=== PATIENT | male | born 1940 | race Caucasian/White ===

== ENCOUNTER 2023-12-15 14:07 | Inpatient (IN) ==
--- NOTE | 2023-12-15 14:22 | Emergency Department Note ---
Impression & Plan Acute respiratory failure with hypoxia and hypercapnia, COPD exacerbation, Elevated troponin ED Provider Note NAME: AMINATA CORNEJO AGE: 83 SEX: M ARRIVES VIA: Ambulance INFORMANT: Patient ED PROVIDER(S): Jayce Bernard MD CHIEF COMPLAINT: Shortness of breath PLAN: Disposition: Admit MEDICAL DECISION MAKING: The patient is a pleasant 83-year-old gentleman with a past medical history of CLL, COPD with as needed home oxygen who presents to the emergency department via EMS for acute onset severe shortness of breath reports his home oxygen did not help nor his inhalers. EMS found the patient to be cyanotic and labored with his breathing saturating 85% on room air. This did improve somewhat with supplemental oxygen. Patient was noted to be hypertensive in the 200s/100s and heart rate in the 100s and tachypneic in the 30s. Patient reports feeling in his normal state of health yesterday that any recent fevers, chills, cough congestion. Denies any acute onset chest pain with his associated symptoms today. He reports he was preparing to go to a . Patient denies taking any diuretics. On my evaluation the patient is ill-appearing in moderate respiratory distress with labored breathing and diffuse wheezes of bilateral lung garnica with prolonged expiratory phase and accessory muscle use. He appears clinically dry. Patient is afebrile with heart rate in the 110s and blood pressure 230s/120s improving to the low 100s and 180s/100s following treatment with DuoNeb, steroids, BiPAP. Work of breathing also significantly improved. EKG demonstrates sinus tachycardia, 110 bpm with LVH with QRS widening which is similar to May 03, 2023 with more pronounced reposition abnormalities. Chest x-ray demonstrates vascular congestion with left greater than right mixed interstitial and alveolar airspace opacities suspicious for pneumonia versus a symmetric pulmonary edema. WBC 21.5 nonspecific and similar to prior in setting of history of CLL. H/H12.9/42.4, similar to prior values. VBG demonstrates respiratory acidosis with pH of 7.2 pCO2 of 73 consistent with patient's COPD and presentation. Chemistry without metabolic acidosis. Creatinine 1.5 similar to prior values. Electrolytes LFTs unremarkable. High-sensitivity troponin 88, nonspecific and in the setting of the patient's acute respiratory failure and history of CHF. BNP is 842, nonspecific but in the setting of prior echo demonstrating mild systolic dysfunction in the setting of the patient acute respiratory failure, tachypnea and tachycardia. Suspect symptoms likely related to multiple factors including component of COPD exacerbation which may have been provoked by hypertensive urgency/emergency in the setting of history of mild systolic dysfunction. Of note, Nitropaste ordered initially to help reduce afterload as the patient had been hypertensive but his blood pressure did improve to the 140s/70s and so this was deferred. Case was d/w YOVANA Mota hospitalist who will evaluate the patient for admission. Procalcitonin 2.5. Delta 3 hour HS troponin 12,500. Admitting team aware. Patient feeling improved. Further management per admitting team. Triage Nursing notes reviewed and agree them. Prior/external medical records reviewed: Of note, review of patient's echocardiogram from 05/26/2023 demonstrates mildly reduced left ventricular systolic function with EF of 45-50%. Grade 1 diastolic dysfunction is noted. Right ventricle is normal in size and function. There is mild to moderate mitral regurgitation. Right ventricular systolic pressure is normal. Vital Signs: reviewed Differential diagnosis: Reactive airway disease, pneumonia, pneumothorax, COPD, CHF, infections, cardiac ischemia, pulmonary embolism, musculoskeletal, gastrointestinal, as well as other pathologies. ER treatment provided: See below. Diagnostics interpreted by me: ECG: Sinus tachycardia, 110 bpm, LVH with QRS widening which is similar to EKG from May 03, 2023 though with more pronounced repolarization abnormalities., QTc 454, QRS 130. Cardiac Monitoring: An order for continuous cardiac monitoring was placed and demonstrated Sinus tachycardia, 110 bpm Laboratory studies: See below Imaging studies: See below Consultation(s): Case was d/w YOVANA Mota hospitalist who will evaluate the patient for admission. HPI: The patient is a pleasant 83-year-old gentleman with a past medical history of CLL, COPD with as needed home oxygen who presents to the emergency department via EMS for acute onset severe shortness of breath reports his home oxygen did not help nor his inhalers. EMS found the patient to be cyanotic and labored with his breathing saturating 85% on room air. This did improve somewhat with supplemental oxygen. Patient was noted to be hypertensive in the 200s/100s and heart rate in the 100s and tachypneic in the 30s. Patient reports feeling in his normal state of health yesterday that any recent fevers, chills, cough congestion. Denies any acute onset chest pain with his associated symptoms today. He reports he was preparing to go to a . ROS: See above HPI for pertinent positives & negatives. A total of 10 systems reviewed and were otherwise negative. VITALS:See Below PHYSICAL EXAMINATION: GENERAL: Awake, alert, in moderate respiratory distress. HENT: Normocephalic, atraumatic. Oropharynx with dry mucous membranes and otherwise unremarkable. EYES: Normal conjunctiva. Sclera non-icteric. NECK: Supple. No nuchal rigidity. FROM. No JVD. RESPIRATORY: Diffuse wheezes bilateral lung garniac with prolonged expiratory phase and accessory muscle use CARDIAC: Tachycardic rate, normal rhythm. Extremities warm and well perfused. Pulses equal. ABDOMEN: Soft, non-distended. No tenderness to palpation. No rebound or guarding. No masses. RECTAL: Deferred. MUSCULOSKELETAL: Chest examination reveals no tenderness. The back is symmetrical on inspection without obvious abnormality. There is no CVA tenderness to palpation. No joint edema. LOWER EXTREMITIES: Calves are equal size bilaterally and non-tender. No edema. No discoloration. NEURO: Normal sensorium. No sensory or motor deficits noted. SKIN: No rash or jaundice noted. ED COURSE: Critical Care: I have personally spent greater than 45 minutes of critical care time in the direct management of this patient. This includes bedside care, interpretation of diagnostic studies, and testing, discussion with consultants, patient, and family members, and other required patient management activities. This 45 minutes is in excess of all separately billable procedures. Jayce Bernard MD Past Med/Surg History Medical History CLL (chronic lymphocytic leukemia) Insomnia Hypertension Anxiety Bronchospasm Surgical History Hx of tonsillectomy Cataract extraction status Family History Brother Alcoholism Cirrhosis Denies family history of Ovarian cancer Prostate cancer Coronary heart disease Breast cancer Colorectal cancer Social History Smoking Status: Former smoker Age Quit Using Tobacco: 68; Cigarettes Per Day: 2 packs per week; Second Hand Exposure: No; Do You Dip or Chew Tobacco: No; Hx Alcohol Use: Yes Alcohol type: hard liquor Hx Substance Use: No Preferred Language: Citizen Of [place] Communication Ability: Effective Hearing Ability: Normal 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 Beliefs That Will Affect Care: None marital status: / Current Living Situation: Significant Other current occupational status: retired Other Information That Helps Us Care for You: No Feels Safe at Home: Yes Safety Concerns: Feels Safe At This Time Childhood Exposure to Second-Hand Smoke: Yes Diet: regular Dental Care, Regularly: Yes Physical Activity Frequency: Daily Seatbelt Use: always Sunscreen Use: Yes Assistive Devices: Cane, Denture - Upper, Glasses and Nebulizer Allergies Allergies Allergy/AdvReac Type Severity Reaction Status Date / Time No Known Allergies Allergy Verified 12/15/23 15:50 Home Meds Home Medications Medication Instructions Recorded Confirmed omeprazole 20 mg tablet,delayed 20 mg PO DAILY PRN 05/21/20 12/15/23 release HEARTBURN/INDIGESTION propranolol 20 mg tablet 20 mg PO BID 12/15/23 12/15/23 Previous Rx's Medication Instructions Recorded albuterol sulfate 90 mcg/actuation 2 puffs inhalation Q6H PRN 07/26/19 aerosol inhaler (Proventil HFA) shortness of breath or wheezing #18 grams ferrous sulfate 325 mg (65 mg 325 mg PO DAILY #90 tabs 06/06/23 iron) tablet lisinopril 20 mg tablet 20 mg PO DAILY #90 tabs 07/06/23 Results & Data (ED) Vital Signs Vital Signs - 24 hr 12/15/23 14:08 12/15/23 14:20 12/15/23 14:38 Temperature 36.9 C Temperature Source Oral Pulse Rate 117 H 110 H Pulse Rate [Apical] Respiratory Rate 33 H 26 H Respiratory Effort / Characteristics Spontaneous Accessory Muscle Use Spontaneous Respiratory Depth Normal Respiratory Pattern Tachypnea Tachypnea Blood Pressure 230/120 H Blood Pressure [Right Arm] Blood Pressure Mean 156 Blood Pressure Mean [Right Arm] Blood Pressure Position [Right Arm] Pulse Oximetry 96 80 L 100 Oxygen Delivery Method Nasal Cannula Room Air Oxygen Flow Rate 4 Fraction of Inspired Oxygen 40 Sepsis Recent Fever Within 48 Hours No Sepsis New/Unexplained Change in Mental Status No Sepsis Action Taken by Nursing No Action Required 12/15/23 14:38 12/15/23 14:43 12/15/23 14:44 Temperature Temperature Source Pulse Rate Pulse Rate [Apical] Respiratory Rate Respiratory Effort / Characteristics Spontaneous Accessory Muscle Use Short of Breath Respiratory Depth Shallow Respiratory Pattern Blood Pressure Blood Pressure [Right Arm] Blood Pressure Mean Blood Pressure Mean [Right Arm] Blood Pressure Position [Right Arm] Pulse Oximetry 96 Oxygen Delivery Method Nasal Cannula BiPAP BiPAP Oxygen Flow Rate 4 Fraction of Inspired Oxygen Sepsis Recent Fever Within 48 Hours Sepsis New/Unexplained Change in Mental Status Sepsis Action Taken by Nursing 12/15/23 14:48 12/15/23 15:40 Temperature Temperature Source Pulse Rate Pulse Rate [Apical] 114 H 98 H Respiratory Rate 24 18 Respiratory Effort / Characteristics Spontaneous Non-Labored Spontaneous Respiratory Depth Normal Respiratory Pattern Regular Blood Pressure Blood Pressure [Right Arm] 141/72 H Blood Pressure Mean Blood Pressure Mean [Right Arm] 95 Blood Pressure Position [Right Arm] Lying Pulse Oximetry 40 L 98 Oxygen Delivery Method BiPAP Nasal Cannula Oxygen Flow Rate 2 Fraction of Inspired Oxygen Sepsis Recent Fever Within 48 Hours Sepsis New/Unexplained Change in Mental Status Sepsis Action Taken by Nursing Laboratory Data Attestation: I reviewed the patient's lab results. 12/15/23 20:52 12/15/23 14:27 Lab Results 12/15/23 12/15/23 12/15/23 Range/Units 14:27 14:35 15:49 WBC 21.52 H (4.8-10.8) K/ul RBC 4.54 L (4.70-6.10) M/uL Hgb 12.9 L (14.0-18.0) g/dl Hct 42.4 (42.0-52.0) % MCV 93.4 (80.0-100.0) fL MCH 28.4 (25.0-34.0) pg MCHC 30.4 L (32.0-36.0) g/dL RDW Std Deviation 45.9 (36.4-46.3) fL RDW Coeff of Brian 13.4 (11.5-14.5) % Plt Count 284 (130-400) K/uL MPV 9.7 (9.4-12.4) fL Immature Gran % (Auto) 0.4 % Neut % (Auto) 25.2 % Lymph % (Auto) 73.4 % [place] % (Auto) 0.6 % Eos % (Auto) 0.1 % Baso % (Auto) 0.3 % Neut # (Auto) 5.41 (1.40-6.50) K/uL Lymph # (Auto) 15.80 H (1.20-3.40) K/uL [place] # (Auto) 0.12 (0.11-0.59) K/uL Eos # (Auto) 0.03 (0.00-0.50) K/uL Baso # (Auto) 0.07 (0.00-0.20) K/uL Immature Gran # (Auto) 0.09 (0.01-0.20) K/uL Absolute Nucleated RBC 0.04 (0.00-0.12) K/uL Nucleated RBC % (auto) 0.2 % VBG pH 7.20 L (7.36-7.41) VBG pCO2 73 H (38-50) mmHg VBG pO2 36 mmHg VBG HCO3 29 mmol/L VBG O2 Saturation < 60.0 % VBG Base Excess -1.4 mEq/L Sodium 138 (136-145) mmol/L Potassium 5.0 (3.5-5.1) mmol/L Chloride 105 (98-107) mmol/L Carbon Dioxide 26 (21-32) mmol/L Anion Gap 7 (3-11) BUN 20 (6-23) mg/dl Creatinine 1.57 H (0.6-1.4) mg/dl Est Cr Clr Drug Dosing 34.5 ml/min Est GFR ( Amer) 46.6 ml/min Est GFR (Non-Af Amer) 40.2 ml/min BUN/Creatinine Ratio 12.7 (10-20) Glucose 102 H (70-99(Fasting)) mg/dl Calcium 9.6 (8.6-10.3) mg/dl Phosphorus 4.6 (2.5-4.9) mg/dl Magnesium 1.9 (1.7-2.4) mg/dl Total Bilirubin 0.8 (0.2-1.0) mg/dl AST 24 (13-39) U/L ALT 14 (7-52) U/L Alkaline Phosphatase 72 (34-104) U/L Troponin I High Sens 88.0 H* (0-20) pg/ml B-Natriuretic Peptide 842 H (0-100) pg/ml Total Protein 6.9 (6.0-8.3) gm/dl Albumin 4.2 (3.4-5.0) gm/dl Globulin 2.7 (2.5-4.0) gm/dl Albumin/Globulin Ratio 1.6 (0.9-2) Lipase 20 (11-82) U/L Procalcitonin 2.58 H (0-0.5) ng/ml Adenovirus (PCR) Not Detected (NotDetected) B. pertussis DNA (PCR) Not Detected (NotDetected) B.parapertussis DNA PCR Not Detected (NotDetected) C. pneumoniae DNA (PCR) Not Detected (NotDetected) Coronavirus OC43 (PCR) Not Detected (NotDetected) Coronavirus HKU1 (PCR) Not Detected (NotDetected) Coronavirus 229E (PCR) Not Detected (NotDetected) SARS-CoV-2 (PCR) Not Detected (NotDetected) Coronavirus NL63 (PCR) Not Detected (NotDetected) Human Metapneumovir PCR Not Detected (NotDetected) Influenza Type A (PCR) Not Detected (NotDetected) Influenza Type B (PCR) Not Detected (NotDetected) M. pneumoniae (PCR) Not Detected (NotDetected) Parainfluenza 1 (PCR) Not Detected (NotDetected) Parainfluenza 2 (PCR) Not Detected (NotDetected) Parainfluenza 3 (PCR) Not Detected (NotDetected) Parainfluenza 4 (PCR) Not Detected (NotDetected) RSV (PCR) Not Detected (NotDetected) Entero/Rhino (PCR) Not Detected (NotDetected) Administered Medications Albuterol (Albut/Ipratrop 3mg/0.5mg Neb 3 Ml Vial) 3 ml NEB QIDR DERICK; Protocol Stop: 01/14/24 19:23 Last Admin: 12/15/23 20:15 Dose: 3 ml Documented By: CAM Azithromycin (Azithromycin 250 Mg Tab) 500 mg PO Q24H [facility] Stop: 12/17/23 19:25 Last Admin: 12/15/23 20:56 Dose: 500 mg Documented By: HAL Heparin Sodium/Dextrose (Heparin Sodium/Dextrose) 25,000 units in 500 mls @ 17 mls/hr IV .Q24H [facility]; Protocol Stop: 01/14/24 18:44 Last Admin: 12/15/23 20:55 Dose: 850 units/hr, 17 mls/hr Documented By: HAL Co-signed By: STALIN Metoprolol Tartrate (Metoprolol Tartrate 25 Mg Tab) 25 mg PO BID [facility] Stop: 01/14/24 20:59 Last Admin: 12/15/23 20:56 Dose: 25 mg Documented By: HAL Discontinued Medications Albuterol (Albut/Ipratrop 3mg/0.5mg Neb 3 Ml Vial) 12 ml NEB ONE ONE; Protocol Stop: 12/15/23 14:21 Last Admin: 12/15/23 14:35 Dose: 12 ml Documented By: [place] Aspirin (Aspirin 81 Mg Chew) 324 mg PO NOW STA Stop: 12/15/23 18:18 Last Admin: 12/15/23 18:41 Dose: 324 mg Documented By: HIRAM Furosemide (Furosemide Inj 20 Mg/2 Ml Vial) 20 mg IV ONE STA Stop: 12/15/23 18:04 Last Admin: 12/15/23 18:41 Dose: 20 mg Documented By: HIRAM Heparin Sodium (Porcine) (Heparin Sod (Porcine) 1000 Unit/Ml) 4,000 units IV NOW STA Stop: 12/15/23 20:14 Last Admin: 12/15/23 20:55 Dose: 4,000 units Documented By: HAL Co-signed By: STALIN Heparin Sodium/Dextrose (Heparin Iv Adult Wt-Based Low-Dose W/ Initial Bolus Protocol) 1 each IV Q15M [facility]; Protocol Stop: 12/15/23 19:19 Last Admin: 12/15/23 21:28 Dose: Not Given Documented By: Admin: 12/15/23 21:27 Dose: Not Given Documented By: Admin: 12/15/23 21:27 Dose: Not Given Documented By: Admin: 12/15/23 20:55 Dose: 1 each Documented By: HAL Sodium Chloride (Nss) 500 mls @ 999 mls/hr IV .Q31M ONE Stop: 12/15/23 14:50 Last Infusion: 12/15/23 18:20 Dose: Infused Documented By: Admin: 12/15/23 15:31 Dose: 999 mls/hr Documented By: HIRAM Methylprednisolone (Methylprednisolone 125 Mg/2 Ml Vial) 125 mg IV NOW STA Stop: 12/15/23 14:21 Last Admin: 12/15/23 15:31 Dose: 125 mg Documented By: HIRAM Nitroglycerin (Nitroglycerin 2% Ointment 30gm Tube) 1 inch EXT NOW STA Stop: 12/15/23 15:26 Last Admin: 12/15/23 15:48 Dose: Not Given Documented By: HIRAM Imaging Data Radiologist's Impression: Chest X-Ray 12/15/23 14:20 XR chest 1V portable HISTORY: 83 years-old Male Chest pain, nonspecific COMPARISON: None TECHNIQUE: AP view of the chest FINDINGS: Cardiac silhouette is enlarged. Pulmonary vascular congestion with interstitial coarsening. Hazy asymmetric left greater than right bilateral airspace opacities. No pneumothorax, large pleural effusion or acute fracture identified. IMPRESSION: Cardiomegaly with pulmonary vascular congestion and left greater than right mixed interstitial and alveolar opacities which may represent asymmetric pulmonary edema versus multifocal pneumonia. ACT 112: Negative or not required by law. The above report was generated using voice recognition software. It may contain grammatical, syntax or spelling errors. Electronically signed by: Tin Brooks M.D. 12/15/2023 3:06 PM Discharge Plan Visit Data Chief Complaint: Shortness of Breath/Dyspnea ED Provider: Jayce Bernard Discharge Problem: Acute respiratory failure with hypoxia and hypercapnia, COPD exacerbation, Elevated troponin
[2023-12-15] MEDS: ALBUT/IPRATROP 3MG/0.5MG NEB 3 ML VIAL NEB ONE (14:35)
[2023-12-15 14:49] LABS: Hematocrit (blood only) 42.4 % (42.0-52.0); Hemoglobin 12.9 g/dl (14.0-18.0); Mean Corpuscular Hemoglobin 28.4 pg (25.0-34.0); Mean Corpuscular Hgb Conc 30.4 g/dL (32.0-36.0); Mean Corpuscular Volume 93.4 fL (80.0-100.0); Mean Platelet Volume 9.7 fL (9.4-12.4); Nucleated RBC # (auto) 0.04 K/uL (0.00-0.12); Nucleated RBC % (auto) 0.2 %; Platelet Count 284 K/uL (130-400); RDW Coefficient of Variation 13.4 % (11.5-14.5); RDW Standard Deviation 45.9 fL (36.4-46.3); Red Blood Count 4.54 M/uL (4.70-6.10); White Blood Count 21.52 K/ul (4.8-10.8)
[2023-12-15 14:49] LABS: Base Excess VBG -1.4 mEq/L; HCO3 VBG 29 mmol/L; Oxygen Saturation VBG < 60.0 %; PCO2 VBG 73 mmHg (38-50); PO2 VBG 36 mmHg
[2023-12-15 15:06] LABS: Albumin Globulin Ratio 1.6 (0.9-2); Albumin Level 4.2 gm/dl (3.4-5.0); BUN Creatinine Ratio 12.7 (10-20); Bilirubin,Total 0.8 mg/dl (0.2-1.0); Calcium 9.6 mg/dl (8.6-10.3); Creatinine Clr Calc Pharmacy 34.5 ml/min; Est GFR (African American) 46.6 ml/min; Est GFR (Non-African American) 40.2 ml/min; Globulin 2.7 gm/dl (2.5-4.0); Magnesium 1.9 mg/dl (1.7-2.4); Phosphorus 4.6 mg/dl (2.5-4.9); Total Protein 6.9 gm/dl (6.0-8.3)
--- NOTE | 2023-12-15 15:08 | XRay Report ---
XR chest 1V portable HISTORY: 83 years-old Male Chest pain, nonspecific COMPARISON: None TECHNIQUE: AP view of the chest FINDINGS: Cardiac silhouette is enlarged. Pulmonary vascular congestion with interstitial coarsening. Hazy asym metric left greater than right bilateral airspace opacities. No pneumothorax, large pleural effusion or acute fracture identified. IMPRESSION: Cardiomegaly with pulmonary vascular congestion and left greater than right mixed interst itial and alveolar opacities which may represent asymmetric pulmonary edema versus multifocal pneumon ia. ACT 112: Negative or not required by law. The above report was generated using voice recognition software. It may contain grammatical, syntax o r spelling errors. Electronically signed by: Tin Brooks M.D. 12/15/2023 3:06 PM
[2023-12-15] MEDS: methylPREDNISolone 125 MG/2 ML VIAL IV STA (15:31)
[2023-12-15] MEDS: SODIUM CHLORIDE 0.9% 500 ML IV ONE (15:31)
[2023-12-15] MEDS: NITROGLYCERIN 2% OINTMENT 30GM TUBE EXT STA (15:39)
--- NOTE | 2023-12-15 15:47 | History & Physical Report ---
Date of Service December 15, 2023 Assessment & Plan (1) NSTEMI (non-ST elevated myocardial infarction): Plan: With significant troponin rise and EKG ST depressions in lateral leads main concern is for a type I NSTEMI which may have caused some pulmonary edema noted on chest x-ray. Aspirin 324 mg p.o., IV heparin, switch propranolol to metoprolol tartrate 25 mg p.o. BID, lipid panel in a.m. N.p.o. after midnight for possible cardiac catheterization tomorrow TTE Trend troponins overnight Consult cardiology (2) Acute respiratory failure with hypoxia and hypercapnia: Plan: Appears resolved after BiPAP, DuoNebs and Solu-Medrol given in the ER consistent with a COPD exacerbation Possibly pulmonary edema contributing therefore we will give Lasix 20 mg IV and monitor I's and O's Procalcitonin increased with concern for multifocal pneumonia on CXR although no neutrophilia Repeat VBG in a.m. Aim O2 sats > 94% (3) COPD exacerbation: Plan: Unclear definitive diagnosis given rapid improvement in the emergency room however he is still on 2 L/min O2 and is on room air at home Given wheezing noted by ER provider which resolved with nebulizers this is not consistent with pulm edema wheezing therefore appears reasonable to continue DuoNebs QID and Solu-Medrol 40 mg IV daily Start azithromycin 500 mg p.o. daily for 3 days (4) HTN (hypertension): Plan: Rapid resolution following COPD exacerbation treatment. He never required the nitro paste Continue to monitor Continue lisinopril 20mg PO daily with switching propranolol to metoprolol as above (5) BPH (benign prostatic hyperplasia): Plan: Noted history of this in EHR but no current medications - monitor for urinary retention (6) CLL (chronic lymphocytic leukemia): Plan: Differential of white blood count over lymphocytes suggestive of CLL and no acute infection. Plan VTE prophylaxis - IV heparin Diet - heart healthy, low-sodium, n.p.o. after midnight Disposition - admit to PCU Admission and Anticipated Discharge Date Admission Date: December 15, 2023 History of Present Illness Chief Complaint: Panic attack Primary Care Provider: Bhanu Ku DO Benja Pool is an 83-year-old male who presents to the ER via EMS with shortness of breath. He was on his way to a when he became acutely short of breath around 12:30pm and called EMS. EMS noted he was cyanotic in the face and nailbeds and ALS was initiated. He arrived to the ED on 4 L/min O2 via nasal cannula. Given 1 mg of Ativan PO en route. He is on room air at home but occasionally uses his partners oxygen. He reports a history of COPD but is on no maintenance inhalers and uses his albuterol x4/day. In the ER he was given an hour long duoneb, Solu-Medrol and placed on BiPAP with complete resolution of his shortness of breath but still requiring 2LPM O2 at rest. When seen the patient reports feeling fine and wondering why he needs to stay in hospital. He feels like he had a panic attack which is fully resolved. He notes having repeated panic attacks on exertion which resolves with rest. He is unsure whether the nebulizer treatment given in the emergency room helped with his shortness of breath although notably feels completely improved now compared to when EMS were called. Per ER provider the patient's chest on auscultation was significantly wheezing prior to duonebs. The patient reports no current chest pain or shortness of breath. He reports maybe having some mild discomfort under both ribs b/l. No palpitations, leg swelling, weight gain, presyncope or syncope. Allergies Allergy/AdvReac Type Severity Reaction Status Date / Time No Known Allergies Allergy Verified 12/15/23 15:50 Home Medications Medication Instructions Recorded Confirmed Type albuterol sulfate 90 mcg/actuation 2 puffs inhalation Q6H PRN 07/26/19 12/15/23 Rx aerosol inhaler (Proventil HFA) shortness of breath or wheezing #18 grams omeprazole 20 mg tablet,delayed 20 mg PO DAILY PRN 05/21/20 12/15/23 History release HEARTBURN/INDIGESTION ferrous sulfate 325 mg (65 mg 325 mg PO DAILY #90 tabs 06/06/23 12/15/23 Rx iron) tablet lisinopril 20 mg tablet 20 mg PO DAILY #90 tabs 07/06/23 12/15/23 Rx propranolol 20 mg tablet 20 mg PO BID 12/15/23 12/15/23 History Past Med/Surg History Medical History CLL (chronic lymphocytic leukemia) Insomnia Hypertension Anxiety Bronchospasm Surgical History Hx of tonsillectomy Cataract extraction status Family History Brother Alcoholism Cirrhosis Denies family history of Ovarian cancer Prostate cancer Coronary heart disease Breast cancer Colorectal cancer Social History Smoking Status: Former smoker Age Quit Using Tobacco: 68; Cigarettes Per Day: 2 packs per week; Second Hand Exposure: No; Do You Dip or Chew Tobacco: No; Hx Alcohol Use: Yes Alcohol type: hard liquor Hx Substance Use: No Preferred Language: Sami Communication Ability: Effective Hearing Ability: Normal Cook Cold Meat Required: No Beliefs That Will Affect Care: None marital status: / Current Living Situation: Significant Other current occupational status: retired Other Information That Helps Us Care for You: No Feels Safe at Home: Yes Safety Concerns: Feels Safe At This Time Childhood Exposure to Second-Hand Smoke: Yes Diet: regular Dental Care, Regularly: Yes Physical Activity Frequency: Daily Seatbelt Use: always Sunscreen Use: Yes Assistive Devices: Cane, Denture - Upper, Glasses and Nebulizer Review of Systems Review of Systems: All systems reviewed & are unremarkable except as noted in HPI & below Physical Exam Constitutional: WD/WN, vitals as above Eyes: + anicteric sclerae; normal pupil size ENMT: external ear and nose normal, oropharynx normal Respiratory: normal respiratory effort; no respiratory distress Auscultation: lungs clear to auscultation bilaterally; breath sounds present, no diminished lung sounds, no crackles, no rales, no rhonchi and no wheezes Cardiovascular: RRR, no murmur, no edema Gastrointestinal (Abdomen): normal bowel sounds, soft, nontender, no hepatosplenomegaly Musculoskeletal: no cyanosis or clubbing, extremities motor strength 5/5 Skin: no rashes, warm and dry Neurologic: moves all extremities and awake; not confused Psychiatric: A+Ox3, euthymic affect Results & Data Results & Data Vital Signs (Past 12 Hours) Vital Signs Temp Pulse Pulse Resp BP BP Pulse Ox 12/15/23 15:40 98 H 18 141/72 H 98 12/15/23 14:48 114 H 24 40 L 12/15/23 14:44 12/15/23 14:43 12/15/23 14:38 96 12/15/23 14:38 110 H 26 H 100 12/15/23 14:20 80 L 12/15/23 14:08 36.9 C 117 H 33 H 230/120 H 96 O2 Del Method O2 Flow Rate FiO2 12/15/23 15:40 Nasal Cannula 2 12/15/23 14:48 BiPAP 12/15/23 14:44 BiPAP 12/15/23 14:43 BiPAP 12/15/23 14:38 Nasal Cannula 4 12/15/23 14:38 40 12/15/23 14:20 Room Air 12/15/23 14:08 Nasal Cannula 4 Laboratory Results Abnormal lab results 12/15/23 12/15/23 Range/Units 14:27 14:35 WBC 21.52 H (4.8-10.8) K/ul RBC 4.54 L (4.70-6.10) M/uL Hgb 12.9 L (14.0-18.0) g/dl MCHC 30.4 L (32.0-36.0) g/dL VBG pH 7.20 L (7.36-7.41) VBG pCO2 73 H (38-50) mmHg Creatinine 1.57 H (0.6-1.4) mg/dl Glucose 102 H (70-99(Fasting)) mg/dl Troponin I High Sens 88.0 H* (0-20) pg/ml B-Natriuretic Peptide 842 H (0-100) pg/ml Diagnostic Findings XR chest 1V portable HISTORY: 83 years-old Male Chest pain, nonspecific COMPARISON: None TECHNIQUE: AP view of the chest FINDINGS: Cardiac silhouette is enlarged. Pulmonary vascular congestion with interstitial coarsening. Hazy asymmetric left greater than right bilateral airspace opacities. No pneumothorax, large pleural effusion or acute fracture identified. IMPRESSION: Cardiomegaly with pulmonary vascular congestion and left greater than right mixed interstitial and alveolar opacities which may represent asymmetric pulmonary edema versus multifocal pneumonia. Medications Administered ER medications given: Solu-Medrol 125 mg IV DuoNeb 12 mL neb Normal saline 500 mL bolus Nitroglycerin 1 inch paste ECG Rate (beats per minute): 110 Rhythm: sinus tachycardia Findings: + LBBB and + ST depression (Lateral) Comparison ECG Date: no prior available Code Status & VTE Plan Code Status Full VTE Prophylaxis Plan VTE Prophylaxis will be ordered: Yes PG Care Time/CCT Total # of Minutes Spent Total Time Spent with Patient: Total time spent is greater than 50% in coordination of care (as documented) at patient's floor/unit and/or counseling patient: Coding Level of Care Code 45314 INT INP/OBS CARE 3/75MIN Diagnoses NSTEMI (non-ST elevated myocardial infarction) I21.4 Acute respiratory failure with hypoxia and hypercapnia J96.01; J96.02 COPD exacerbation J44.1 HTN (hypertension) I10 BPH (benign prostatic hyperplasia) N40.0 CLL (chronic lymphocytic leukemia) C91.10
[2023-12-15 15:52] LABS: Basophils # (auto) 0.07 K/uL (0.00-0.20); Basophils % (auto) 0.3 %; Eosinophils # (auto) 0.03 K/uL (0.00-0.50); Eosinophils % (auto) 0.1 %; Immature Granulocytes # (auto) 0.09 K/uL (0.01-0.20); Immature Granulocytes % (auto) 0.4 %; Lymphocytes % (auto) 73.4 %; Monocytes # (auto) 0.12 K/uL (0.11-0.59); Monocytes % (auto) 0.6 %; Neutrophils # (auto) 5.41 K/uL (1.40-6.50); Neutrophils % (auto) 25.2 %
--- NOTE | 2023-12-15 16:26 | Electrocardiogram Report ---
Test Reason : Blood Pressure : / mmHG Vent. Rate : 110 BPM Atrial Rate : 110 BPM P-R Int : 200 ms QRS Dur : 130 ms QT Int : 336 ms P-R-T Axes : 051 -44 116 degrees QTc Int : 454 ms Sinus tachycardia Left axis deviation Left ventricular hypertrophy with QRS widening and repolarization abnormality ST depression in Lateral leads , consider ischemia Abnormal ECG No previous ECGs available Confirmed by Terrence Waters ([id number]) on 12/15/2023 4:26:10 PM Referred By: REFERRED SELF Confirmed By:Terrence Waters
[2023-12-15 16:46] LABS: Adenovirus PCR Not Detected (NotDetected); Bordetella parapertussis PCR Not Detected (NotDetected); Bordetella pertussis PCR Not Detected (NotDetected); Chlamydia pneumoniae PCR Not Detected (NotDetected); Coronavirus 229E PCR Not Detected (NotDetected); Coronavirus CoV-2 (COVID19)PCR Not Detected (NotDetected); Coronavirus HKU1 PCR Not Detected (NotDetected); Coronavirus NL63 PCR Not Detected (NotDetected); Coronavirus OC43PCR Not Detected (NotDetected); Human Metapneumovirus PCR Not Detected (NotDetected); Influenza A PCR Not Detected (NotDetected); Influenza B PCR Not Detected (NotDetected); Mycoplasma pneumoniae PCR Not Detected (NotDetected); Parainfluenza Virus 1 PCR Not Detected (NotDetected); Parainfluenza Virus 2 PCR Not Detected (NotDetected); Parainfluenza Virus 3 PCR Not Detected (NotDetected); Parainfluenza Virus 4 PCR Not Detected (NotDetected); Respiratory Syncytial VirusPCR Not Detected (NotDetected); Rhinovirus/Enterovirus PCR Not Detected (NotDetected)
[2023-12-15] MEDS: FUROSEMIDE INJ 20 MG/2 ML VIAL IV STA (18:41)
[2023-12-15] MEDS: ASPIRIN 81 MG CHEW PO STA (18:41)
[2023-12-15] MEDS ORDERED: ACETAMINOPHEN 325 MG TAB PO PRN (19:24)
[2023-12-15] MEDS ORDERED: PANTOprazole 40 MG TAB PO PRN (19:30)
[2023-12-15] MEDS: ALBUT/IPRATROP 3MG/0.5MG NEB 3 ML VIAL NEB SCH (20:15)
[2023-12-15] MEDS: HEPARIN SOD (PORCINE) 1000 UNIT/ML IV STA (20:55)
[2023-12-15] MEDS: HEPARIN SODIUM/DEXTROSE 25,000 UNITS/500 ML BAG IV SCH (20:55)
[2023-12-15] MEDS: Heparin IV Adult Wt-Based Low-Dose w/ INITIAL Bolus Protocol IV SCH (20:55)
[2023-12-15] MEDS: METOPROLOL TARTRATE 25 MG TAB PO SCH (20:56)
[2023-12-15] MEDS: AZITHROMYCIN 250 MG TAB PO SCH (20:56)
[2023-12-15 21:30] LABS: Hematocrit (blood only) 37.4 % (42.0-52.0); Hemoglobin 11.4 g/dl (14.0-18.0); Mean Corpuscular Hgb Conc 30.5 g/dL (32.0-36.0); Mean Corpuscular Volume 91.9 fL (80.0-100.0); Mean Platelet Volume 10.1 fL (9.4-12.4); Platelet Count 225 K/uL (130-400); RDW Coefficient of Variation 13.5 % (11.5-14.5); RDW Standard Deviation 45.5 fL (36.4-46.3); Red Blood Count 4.07 M/uL (4.70-6.10); White Blood Count 18.72 K/ul (4.8-10.8)
[2023-12-15 21:50] LABS: Basophils # (auto) 0.05 K/uL (0.00-0.20); Basophils % (auto) 0.3 %; Immature Granulocytes # (auto) 0.08 K/uL (0.01-0.20); Immature Granulocytes % (auto) 0.4 %; Lymphocytes # (auto) 5.44 K/uL (1.20-3.40); Lymphocytes % (auto) 29.1 %; Monocytes # (auto) 0.28 K/uL (0.11-0.59); Monocytes % (auto) 1.5 %; Neutrophils # (auto) 12.87 K/uL (1.40-6.50); Neutrophils % (auto) 68.7 %
[2023-12-15 21:53] LABS: Partial Thromboplastin Ratio 0.9; Partial Thromboplastin Time 26 Seconds (21-31); Prothrombin Time 10.6 Seconds (9.0-12.0)
[2023-12-16 03:20] LABS: ANTI-Xa, UFH(UnfractionatedHep 0.46 IU/ml (0.3-0.7)
[2023-12-16 07:50] LABS: Base Excess VBG -0.5 mEq/L; HCO3 VBG 26 mmol/L; Oxygen Saturation VBG < 60.0 %; PCO2 VBG 52 mmHg (38-50); PO2 VBG 26 mmHg; pH VBG 7.31 (7.36-7.41)
[2023-12-16 08:02] LABS: Hematocrit (blood only) 31.2 % (42.0-52.0); Hemoglobin 9.9 g/dl (14.0-18.0); Mean Corpuscular Hemoglobin 28.3 pg (25.0-34.0); Mean Corpuscular Hgb Conc 31.7 g/dL (32.0-36.0); Mean Corpuscular Volume 89.1 fL (80.0-100.0); Mean Platelet Volume 10.2 fL (9.4-12.4); Platelet Count 185 K/uL (130-400); RDW Coefficient of Variation 13.6 % (11.5-14.5); RDW Standard Deviation 44.5 fL (36.4-46.3); White Blood Count 19.22 K/ul (4.8-10.8)
[2023-12-16 08:24] LABS: BUN Creatinine Ratio 19.1 (10-20); Chol HDL Ratio 3.2 (0-5); Creatinine Clr Calc Pharmacy 29.4 ml/min; Est GFR (Non-African American) 34.5 ml/min; Magnesium 1.8 mg/dl (1.7-2.4); Potassium 4.9 mmol/L (3.5-5.1)
[2023-12-16] MEDS: lisinopril 20 MG TAB PO SCH (08:37)
[2023-12-16] MEDS: methylPREDNISolone 40 MG in SYRINGE 0 ML IV SCH (08:39)
[2023-12-16 08:48] LABS: ALC (manual) 2.88 K/uL (1.2-3.4); ANC (manual) 16.14 K/uL (1.4-6.5); Lymphocytes # (manual) 2.88 K/uL (1.2-3.4); Lymphocytes % (manual) 15 %; Monocytes # (manual) 0.19 K/uL (0.11-0.59); Monocytes % (manual) 1 %; Neutrophils # (manual) 16.14 K/uL (1.40-6.50); Neutrophils % (manual) 84 %
--- NOTE | 2023-12-16 10:37 | Electrocardiogram Report ---
Test Reason : Blood Pressure : / mmHG Vent. Rate : 078 BPM Atrial Rate : 078 BPM P-R Int : 206 ms QRS Dur : 122 ms QT Int : 408 ms P-R-T Axes : 059 -45 155 degrees QTc Int : 465 ms Normal sinus rhythm Left axis deviation Left ventricular hypertrophy with QRS widening and repolarization abnormality T-wave inversion in Anterior leads , consider ischemia Abnormal ECG When compared with ECG of 15-DEC-2023 14:22, T-wave inversion in Anterior leads now present Confirmed by Terrence Waters ([id number]) on 12/16/2023 10:37:09 AM Referred By: REFERRED SELF Confirmed By:Terrence Waters
[2023-12-16 11:29] LABS: Estimated Average Glucose 114 mg/dl; Hemoglobin A1C 5.6 % (4.5-5.6)
--- NOTE | 2023-12-16 11:57 | Cardiology Consultation ---
Date of Consultation December 16, 2023 Assessment & Plan (1) Acute respiratory failure with hypoxia and hypercapnia: (2) Pulmonary edema: (3) COPD exacerbation: (4) Demand ischemia: Plan Although the patient has a history of COPD, has abrupt decompensation with an element of pulmonary edema and marked ECG changes with troponin elevation suggest significant component of myocardial ischemia. Fortunately, he was asymptomatic with favorable hemodynamics at the time of my evaluation this morning. Although transient, given the severity of his clinical decompensation with strong suggestion of significant underlying coronary artery disease, after discussion of options patient elects to proceed to cardiac catheterization. Continue aspirin and heparin as well as lisinopril and metoprolol. Plan is for cardiac catheterization by Dr. Jung this afternoon. Further recommendations based on results of this study. History of Present Illness Reason for Consultation: Chest pain Requesting Physician: Donavan Alexander Attending Physician: Donavan Alexander History of Present Illness 83-year-old man with history of COPD but no prior cardiac history who developed abrupt onset dyspnea with bilateral thoracic discomfort while attending a , prompting him to call an ambulance. ER evaluation showed hypoxemia, ECG with LVH with QRS widening and repolarization abnormality but moderately depressed lateral ST segments with new T wave inversions developing overnight, increased vasculature on chest x-ray, and cardiac enzymes showing troponin increased from 88 to 18,795. After treatment in the ER with inhaled nebulizers, steroids, and nitroglycerin patch, he felt remarkably better. He did note a brief cough productive of clear sputum but denied any fevers and his cough has completely resolved. At the time of my evaluation this morning, he was comfortable and had no dyspnea, chest discomfort, or any other somatic complaints. Allergies Allergy/AdvReac Type Severity Reaction Status Date / Time No Known Allergies Allergy Verified 12/15/23 15:50 Home Medications Medication Instructions Recorded Confirmed Type albuterol sulfate 90 mcg/actuation 2 puffs inhalation Q6H PRN 07/26/19 12/15/23 Rx aerosol inhaler (Proventil HFA) shortness of breath or wheezing #18 grams omeprazole 20 mg tablet,delayed 20 mg PO DAILY PRN 05/21/20 12/15/23 History release HEARTBURN/INDIGESTION ferrous sulfate 325 mg (65 mg 325 mg PO DAILY #90 tabs 06/06/23 12/15/23 Rx iron) tablet lisinopril 20 mg tablet 20 mg PO DAILY #90 tabs 07/06/23 12/15/23 Rx propranolol 20 mg tablet 20 mg PO BID 12/15/23 12/15/23 History Patient History Medical History CLL (chronic lymphocytic leukemia) Insomnia Hypertension Anxiety Bronchospasm Surgical History Hx of tonsillectomy Cataract extraction status Family History Brother Alcoholism Cirrhosis Denies family history of Ovarian cancer Prostate cancer Coronary heart disease Breast cancer Colorectal cancer Social History Smoking Status: Former smoker Age Quit Using Tobacco: 68; Cigarettes Per Day: 2 packs per week; Second Hand Exposure: No; Do You Dip or Chew Tobacco: No; Hx Alcohol Use: Yes Alcohol type: hard liquor Hx Substance Use: No Preferred Language: Wallisian Communication Ability: Effective Hearing Ability: Normal Panel Instrument Repairer Required: No Beliefs That Will Affect Care: None marital status: / Current Living Situation: Significant Other current occupational status: retired Other Information That Helps Us Care for You: No Feels Safe at Home: Yes Safety Concerns: Feels Safe At This Time Childhood Exposure to Second-Hand Smoke: Yes Diet: regular Dental Care, Regularly: Yes Physical Activity Frequency: Daily Seatbelt Use: always Sunscreen Use: Yes Assistive Devices: Cane, Denture - Upper, Glasses and Nebulizer Physical Exam Physical Exam: Elderly white male in no distress. Afebrile. Normotensive. Pulse 70 bpm and regular. Respirations 16 and unlabored. Skin: no ecchymoses or generalized lesions. HEENT: unremarkable. Neck: JVP at the clavicle at 90 degrees, no carotid bruits. Lungs: Moderately decreased breath sounds but no wheezing or crackles. No accessory muscle use. Cardiac: regular rhythm, normal S1-2, no murmur. Abdomen: benign. Extremities: no edema, pulses intact. Neurologic: normal affect and conversation, nonfocal. Results & Data Vital Signs (Past 12 Hours) Vital Signs Temp Pulse Pulse Resp BP Pulse Ox O2 Del Method 12/16/23 11:26 98.1 F 70 16 114/61 100 Room Air 12/16/23 11:00 16 95 Room Air 12/16/23 08:00 Room Air 12/16/23 07:37 97.7 F 79 19 135/60 95 Room Air 12/16/23 07:19 77 12/16/23 07:18 80 20 92 Room Air 12/16/23 02:55 98.2 F 78 18 107/44 L 91 Room Air Laboratory Results Troponin as noted in HPI. Hemoglobin 9.9. WBC 19.22, normal platelet count. Sodium 135, potassium 4.9, BUN 34, creatinine 1.78. Cholesterol 166, HDL 52, LDL 100. Diagnostic Findings ECGs as noted in HPI. Chest x-ray shows cardiomegaly with pulmonary vascular congestion. PG Care Time/CCT Total # of Minutes Spent Total Time Spent with Patient: Total time spent is greater than 50% in coordination of care (as documented) at patient's floor/unit and/or counseling patient: Coding Level of Care Code 44059 IN/OBS CONSULT LVL 4,60M Diagnoses Acute respiratory failure with hypoxia and hypercapnia J96.01; J96.02 Pulmonary edema J81.1 COPD exacerbation J44.1 Demand ischemia I24.89
[2023-12-16] MEDS ORDERED: ALBUTEROL HFA 8 GM INHALER INH PRN (14:22)
[2023-12-16] MEDS: fentaNYL citrate PF 100 MCG/2 ML VIAL ONE (14:46)
[2023-12-16] MEDS: niCARdipine HCL INJ 2.5 MG/ML 10 ML AMP ONE (14:47)
[2023-12-16] MEDS: MIDAZOLAM HCL 1 MG/ML 2ML VIAL ONE (14:47)
[2023-12-16] MEDS: HEPARIN (PORCINE) 1000 UNIT/ML 10 ML (CATH LAB USE ONLY) ONE (14:47)
[2023-12-16] MEDS: NITROGLYCERIN/D5W 100MCG/ML 20ML SYR ONE (14:47)
[2023-12-16] MEDS: OPTIRAY 350 ONE (14:58)
[2023-12-16] MEDS ORDERED: HEPARIN SODIUM/DEXTROSE 25,000 UNITS/500 ML BAG IV SCH (15:15)
[2023-12-16] MEDS ORDERED: Heparin IV Adult Wt-Based Standard *NO* INITIAL Bolus Protocol IV SCH (15:25)
--- NOTE | 2023-12-16 15:31 | Pre Anesthesia Assessment ---
Date of Service December 16, 2023 Pre Sedation Assessment Vital Signs Temp Pulse Pulse Resp BP BP Pulse Ox 12/16/23 15:04 80 18 131/82 97 12/16/23 14:53 78 18 133/69 97 12/16/23 13:26 142/62 H 12/16/23 11:26 36.7 C 70 16 114/61 100 12/16/23 11:00 16 95 12/16/23 08:00 12/16/23 07:37 36.5 C 79 19 135/60 95 12/16/23 07:19 77 12/16/23 07:18 80 20 92 12/16/23 02:55 36.8 C 78 18 107/44 L 91 12/15/23 22:55 74 12/15/23 21:42 36.8 C 84 18 117/51 L 90 12/15/23 21:08 93 H 12/15/23 20:16 86 16 90 12/15/23 19:35 36.9 C 95 H 16 146/68 H 90 12/15/23 18:57 87 18 95 12/15/23 16:17 88 12/15/23 15:40 98 H 18 141/72 H 98 O2 Del Method O2 Flow Rate 12/16/23 15:04 Room Air 12/16/23 14:53 Room Air 12/16/23 13:26 12/16/23 11:26 Room Air 12/16/23 11:00 Room Air 12/16/23 08:00 Room Air 12/16/23 07:37 Room Air 12/16/23 07:19 12/16/23 07:18 Room Air 12/16/23 02:55 Room Air 12/15/23 22:55 12/15/23 21:42 Room Air 12/15/23 21:08 12/15/23 20:16 Room Air 12/15/23 19:35 Room Air 12/15/23 18:57 Room Air 12/15/23 16:17 12/15/23 15:40 Nasal Cannula 2 Cardiovascular RRR, no murmur, no edema Respiratory normal respiratory effort, lungs clear to auscultation Pre-Sedation Airway Assessment Smoking Status: Former smoker Hx Sleep Apnea: No Short, Thick Neck: No Thyromental Distance: > or= 3.5 Finger Breadths Oral Cavity: + Dentures Mallampati Class: III ASA: ASA4 NPO Status Date of Last Intake of Fluids: 12/16/23 Time of Last Intake of Fluids: 08:00 Last Oral Intake of Fluids Comment: sip with meds Date of Last Intake of Solid Food: 12/15/23 Notes The planned sedation has been discussed with the patient. Informed Consent was obtained. I have identified the patient, determined the appropriateness of sedation and have assessed the patient immediately prior to the procedure. All medicine(s) and interventions are by my order.
--- NOTE | 2023-12-16 15:32 | Post Anesthesia Assessment ---
Date of Service December 16, 2023 Post Sedation Assessment Vital Signs Temp Pulse Pulse Resp BP BP Pulse Ox 12/16/23 15:20 36.7 C 103 H 102 H 18 169/64 H 99 12/16/23 15:04 80 18 131/82 97 12/16/23 14:53 78 18 133/69 97 12/16/23 13:26 142/62 H 12/16/23 11:26 36.7 C 70 16 114/61 100 12/16/23 11:00 16 95 12/16/23 08:00 12/16/23 07:37 36.5 C 79 19 135/60 95 12/16/23 07:19 77 12/16/23 07:18 80 20 92 12/16/23 02:55 36.8 C 78 18 107/44 L 91 12/15/23 22:55 74 12/15/23 21:42 36.8 C 84 18 117/51 L 90 12/15/23 21:08 93 H 12/15/23 20:16 86 16 90 12/15/23 19:35 36.9 C 95 H 16 146/68 H 90 12/15/23 18:57 87 18 95 12/15/23 16:17 88 O2 Del Method 12/16/23 15:20 Room Air 12/16/23 15:04 Room Air 12/16/23 14:53 Room Air 12/16/23 13:26 12/16/23 11:26 Room Air 12/16/23 11:00 Room Air 12/16/23 08:00 Room Air 12/16/23 07:37 Room Air 12/16/23 07:19 12/16/23 07:18 Room Air 12/16/23 02:55 Room Air 12/15/23 22:55 12/15/23 21:42 Room Air 12/15/23 21:08 12/15/23 20:16 Room Air 12/15/23 19:35 Room Air 12/15/23 18:57 Room Air 12/15/23 16:17 Recovery Score Activity: Moves 4 extremities Respiration: Deep Breath/Cough Circulation: +/-20% PreAnes Value Consciousness: Fully Awake Oxygen Saturation: > 92% On Room Air Post Anesthesia Score: 10 Discharge Sedation Level of Care: Fast Track Phase II Post Sedation Plan On clinical assessment, the patient appears to have tolerated the sedation without complications. Patient is recovering as anticipated. Patient will continue to be monitored by nursing and may be discharged when sedation discharge criteria are met per below protocol. Upon Completions of procedure up to 15 minutes continue every 5 minute vital signs and the P.A.R. score; then discharge to a Phase I or Fast Track to Phase II per the following guidelines: * Discharge Patient to appropriate Phase II area if PAR is 8 or greater or return to pre- procedure baseline. The post - procedure orders will be as directed. * If PAR score is less than 8 or not return to pre-procedure baseline then patient will follow Phase I monitoring till PAR is reached for Phase II. The Phase I may be done in procedure room or may call to secure a Phase I area. * If naloxone or flumazenil are used for reversal, hold in Phase I for continued monitoring from when last reversal dose was given for a minimum of 60 minutes or longer pending the nurse and/or physician discretion of patient condition before discharge to Phase II. Please call the Sedation Physician to re-evaluate and complete post-note for discharge to Phase II area. Do NOT discharge from procedure sedation or Phase 1 until post- sedation evaluation note is complete by procedure /sedation MD Sedation Discharge Instructions to be given to the patient at discharge to home. [facility] Procedure Codes (Charges) Indication for Procedure Indication for procedure: NSTEMI Sedation/Anesthesia Procedure 1: Sedation/Anesthesia: 25112 Mod Sedation by the same physician;Init15 Min Child Age 5 & Up (initial 15 min, start 1422) Total Sedation Time (minutes): 28 Procedure 2: Sedation/Anesthesia: 09028 Mod Sedation by the same physician; Ea [id number] Minutes (additional 13 min, end 1450) Total Sedation Time (minutes): 28
[2023-12-16] MEDS: NITROGLYCERIN SL 0.4 MG/TAB TAB SL STA (15:45)
[2023-12-16] MEDS: PERFLUTREN LIPID MICROSPHERE (DEFINITY) IV ONE (16:00)
--- NOTE | 2023-12-16 16:01 | Cardiac Catheterization ---
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 Cardiac Status Clinical evaluation leading to the procedure CAD Presenation: Non STEMI Anginal Classification: CCS IV Heart Failure: No Cardiogenic Shock within 24 Hours: No Cardiac Arrest within 24 Hours: No Imaging Studies Past 6 Months: No Stress Studies Past 6 Months: No Coronary Anatomy Dominant: Left Left Main (% Stenosis): Ostial (80 to 90%) LAD (% Stenosis): Proximal (Long eccentric calcified probably greater than 55%), Mid (99% calcified) and Distal (Diffuse 50 to 70%) D1 (% Stenosis): Proximal (50-70%) Circumflex (% Stenosis): Ostial (50 to 70%, heavy calcification) OM1 (% Stenosis): Normal OM2 (% Stenosis): Ostial (70%) and Mid (70%) L PL1 (% Stenosis): Distal (95%) L PDA (% Stenosis): Normal (Diffuse less than 50%) RCA (% Stenosis): Normal Diagnostic Physicians Name: Alvaro Jung MD, PhD Closure Device Percutaneous Entry Location: Radial Closure Device: Radial Band Recommendations: CABG Cardiac Cath Procedure Full Procedure Date December 16, 2023 Pre-Procedure Diagnosis Pre-Procedure Diagnosis: Non STEMI AUC Score AUC Score: 07 Post-Procedure Diagnosis Post-Procedure Diagnosis: Severe CAD Procedure(s) Performed Procedure(s) Performed: Coronary Angiography [place] Alvaro Jung MD, PhD Estimated Blood Loss Estimated Blood Loss: 5 ml Medication(s) Medication(s): Fentanyl, Heparin, Lidocaine 1%, Nicardipine, Nitroglycerin and Versed Summary of Findings Brief description: Patient was brought to the cardiac catheterization suite where he was shaved and prepped in a sterile fashion. Sedated using IV Versed and fentanyl. Soft tissues of the right wrist were anesthetized using 2 mL of 1% Xylocaine. The right radial artery was accessed using a modified Seldinger technique and a 6 [place] radial artery glide sheath was placed. Patient was provided anticoagulation with IV heparin and antispasmodics including nicardipine and nitroglycerin. All catheters were advanced and exchanged over a 0.035 J-tip wire. Right coronary angiography was performed in orthogonal views with a 5 [place] 4 diagnostic catheter. Left coronary angiography was attempted using a 5 [place] JL 3.5 diagnostic catheter and a single angiographic run was performed. Patient had significant dampening of pressure using this catheter. Therefore, left coronary angiography was completed using a 4 [place] JL 3.5 diagnostic catheter in multiple views. Diagnostic catheters were removed. Radial artery sheath was removed. Hemostasis was obtained using the TR band. Patient remained hemodynamically stable and was asymptomatic. He was returned to the recovery area. This ended the case. Coronary angiography findings: LMT-there is an ostial to proximal 80 to 90% stenosis and diffuse heavy calcification throughout the left main vessel. Additional disease difficult to ascertain severity in the left main. LAD-this is a transapical vessel. Medium to large in caliber. Proximal segment has long eccentric heavily calcified disease. It gives a branching first diagonal which is relatively large and long with proximal 50 to 70% stenosis with the remainder having no occlusive disease. The mid LAD has 99% stenosis. The distal LAD has diffuse calcified disease of 50 to 70%. OYo-tazmb-aerexem and dominant vessel. Ostial to proximal 50 to 70% stenosis which is heavily calcified. There is a small OM1 followed by a medium to large caliber branching OM 2. This vessel has ostial 70% stenosis. The proximal segment has mild disease with the mid vessel having 70% stenosis. The AV groove vessel remains large as it travels distally then provides a posterolateral branch which is fairly large and has distal 95% stenosis. The circumflex vessel terminates in a branching PDA which has diffuse up to 50% stenosis. RCA-this is medium caliber and nondominant. It is mildly calcified. Summary: 1. Severe multivessel coronary disease including left main. Recommend transfer to tertiary center for Heart Team evaluation regarding CABG versus high risk multivessel PCI. 2. Guideline directed medical therapy for secondary prevention of coronary disease to include low-dose aspirin, high intensity statin therapy, beta- sera, plus or minus TOD inhibitor/ARB. 3. Obtain echocardiogram 4. Resume heparin drip and nitroglycerin as needed for chest pressure. Hemodynamics Rest Ao:: 98/44 mmHg Final Ao: 136/68 mmHg LV: Not performed Recommendations Recommendations: CABG Radiation Exposure (mGy) 966 mGy, fluoroscopy time 5.1 Contrast (mls) 80 Anesthesia 2 mg Versed, 50 mcg fentanyl IV. Start time 1422, end time 1450 Procedural Complication(s) None Disposition Recovery Room\PACU I attest to the content of the Intraoperative Record and any orders documented therein. Any exceptions are noted below. Wilshire Axon Card Cath Procedure Codes Cardiac Catheterization Procedure 1: Cardiovascular Cath Procedures: 52150 Coronaries Moderate Sedation Procedure 1: Sedation/Anesthesia: 62075 Mod Sedation by the same physician;Init15 Min Child Age 5 & Up (Initial 15 min, start 1422) Procedure 2: Sedation/Anesthesia: 94077 Mod Sedation by the same physician; Ea [id number] Minutes (Additional 13 min, end 1450) PG Care Time/CCT Total # of Minutes Spent Total Time Spent with Patient: Total time spent is greater than 50% in coordination of care (as documented) at patient's floor/unit and/or counseling patient:
[2023-12-16] MEDS: ATORVASTATIN 40 MG TAB PO SCH (16:03)
[2023-12-16] MEDS: ISOSORBIDE MONO EXTENDED REL 30 MG TABCR PO SCH (16:04)
[2023-12-16] MEDS: NITROGLYCERIN SL 0.4 MG/TAB TAB ONE (16:04)
[2023-12-16] MEDS: METOPROLOL TARTRATE 1 MG/ML VIAL IV STA ×4 (16:40→18:24)
[2023-12-16] MEDS: NITROGLYCERIN 2% OINTMENT 30GM TUBE EXT ONE (16:45)
--- NOTE | 2023-12-16 16:46 | Electrocardiogram Report ---
Test Reason : Blood Pressure : / mmHG Vent. Rate : 097 BPM Atrial Rate : 097 BPM P-R Int : 202 ms QRS Dur : 126 ms QT Int : 388 ms P-R-T Axes : 054 -48 116 degrees QTc Int : 492 ms Poor data quality, interpretation may be adversely affected Normal sinus rhythm Left axis deviation Left ventricular hypertrophy with QRS widening and repolarization abnormality Abnormal ECG When compared with ECG of 16-DEC-2023 07:08, ST no longer depressed in Anterior leads Confirmed by Sammy Frey ([id number]) on 12/16/2023 4:46:44 PM Referred By: REFERRED SELF Confirmed By:Sammy Frey
--- NOTE | 2023-12-16 17:48 | XCELERA ---
[id number] \\[email or web address]_[email or web address]\[id number]
--- NOTE | 2023-12-16 18:09 | XCELERA ---
[id number] \\[email or web address]\[email or web address]_PDF_[email or web address]\[id number]___[id number]
[2023-12-16] MEDS: FUROSEMIDE INJ 20 MG/2 ML VIAL IV ONE ×2 (18:41→18:50)
[2023-12-16] MEDS: MoRPHine SULFATE 2 MG/ML CARP ONE (18:55)
[2023-12-16] MEDS: MoRPHine SULFATE 2 MG/ML CARP IV STA (19:33)
[2023-12-16] MEDS: PNEUMOCOCCAL VACCINE (PCV20) 20-VAL CONJ-DIP CRM/PF 0.5 ML SYR IM ONE (20:25)
--- NOTE | 2023-12-16 21:11 | Hospitalist Progress Note ---
Date of Service December 16, 2023 Assessment & Plan (1) NSTEMI (non-ST elevated myocardial infarction): Plan: With significant troponin rise and EKG ST depressions in lateral leads main concern is for a type I NSTEMI which may have caused some pulmonary edema noted on chest x-ray. Aspirin 324 mg p.o., IV heparin, switch propranolol to metoprolol tartrate 25 mg p.o. BID, lipid panel in a.m. cardiac cath showed triple vessel disease. Called [facility] for [facility]. Patient was accepted. Ordered metoprolol, morphine, nitropaste. Monitor trop. (2) Acute respiratory failure with hypoxia and hypercapnia: Plan: Appears resolved after BiPAP, DuoNebs and Solu-Medrol given in the ER consistent with a COPD exacerbation Possibly pulmonary edema contributing therefore we will give Lasix 20 mg IV and monitor I's and O's Procalcitonin increased with concern for multifocal pneumonia on CXR although no neutrophilia \\ (3) COPD exacerbation: Plan: Unclear definitive diagnosis given rapid improvement in the emergency room however he is still on 2 L/min O2 and is on room air at home Given wheezing noted by ER provider which resolved with nebulizers this is not consistent with pulm edema wheezing therefore appears reasonable to continue DuoNebs QID and Solu-Medrol 40 mg IV daily Start azithromycin 500 mg p.o. daily for 3 days (4) HTN (hypertension): Plan: Rapid resolution following COPD exacerbation treatment. He never required the nitro paste Continue to monitor Continue lisinopril 20mg PO daily with switching propranolol to metoprolol as above (5) BPH (benign prostatic hyperplasia): Plan: Noted history of this in EHR but no current medications - monitor for urinary retention (6) CLL (chronic lymphocytic leukemia): Plan: Differential of white blood count over lymphocytes suggestive of CLL and no acute infection. Plan VTE prophylaxis - IV heparin Diet - heart healthy, low-sodium Disposition - admit to PCU Admission and Anticipated Discharge Date Admission Date: December 15, 2023 Subjective 83 yo male reports having chest pain after his cardiac cath. He denies any SOB. Review of Systems Review of Systems: All systems reviewed & are unremarkable except as noted in HPI & below Physical Exam Physical Exam: Elderly white male in no distress. Afebrile. Normotensive. Pulse" tachycardic and regular. Respirations: unlabored. Skin: no ecchymoses or generalized lesions. HEENT: unremarkable. Neck: JVP at the clavicle at 90 degrees, no carotid bruits. Lungs: Moderately decreased breath sounds but no wheezing or crackles. No accessory muscle use. Cardiac: regular rhythm, normal S1-2, no murmur. Abdomen: benign. Extremities: no edema, pulses intact. Neurologic: normal affect and conversation, nonfocal. Results & Data Results & Data Vital Signs (Past 12 Hours) Vital Signs Temp Pulse Pulse Resp BP BP Pulse Ox 12/16/23 19:16 36.6 C 97 H 20 156/78 H 97 12/16/23 17:41 99 H 12/16/23 17:26 110 H 168/89 H 12/16/23 17:00 36.4 C L 115 H 22 155/89 H 95 12/16/23 16:55 115 H 155/89 H 12/16/23 16:40 107 H 173/93 H 12/16/23 16:29 36.7 C 108 H 22 167/97 H 96 12/16/23 16:00 36.2 C L 116 H 20 167/87 H 96 12/16/23 15:50 36.7 C 97 H 20 158/76 H 92 12/16/23 15:35 36.7 C 97 H 18 158/78 H 92 12/16/23 15:28 103 H 12/16/23 15:20 36.7 C 103 H 102 H 18 169/64 H 99 12/16/23 15:04 80 18 131/82 97 12/16/23 14:53 78 18 133/69 97 12/16/23 13:26 142/62 H 12/16/23 11:26 36.7 C 70 16 114/61 100 12/16/23 11:00 16 95 O2 Del Method O2 Flow Rate 12/16/23 19:16 Room Air 12/16/23 17:41 12/16/23 17:26 12/16/23 17:00 Nasal Cannula 2 12/16/23 16:55 12/16/23 16:40 12/16/23 16:29 Room Air 12/16/23 16:00 Room Air 12/16/23 15:50 Room Air 12/16/23 15:35 Room Air 12/16/23 15:28 02/09/24 15:20 Room Air 12/16/23 15:04 Room Air 12/16/23 14:53 Room Air 12/16/23 13:26 12/16/23 11:26 Room Air 12/16/23 11:00 Room Air PG Care Time/CCT Total # of Minutes Spent Total Time Spent with Patient: Total time spent is greater than 50% in coordination of care (as documented) at patient's floor/unit and/or counseling patient: Coding Level of Care Code 70391 SUB INP/OBS CARE 3/50MIN Diagnoses NSTEMI (non-ST elevated myocardial infarction) I21.4 Acute respiratory failure with hypoxia and hypercapnia J96.01; J96.02 COPD exacerbation J44.1 HTN (hypertension) I10 BPH (benign prostatic hyperplasia) N40.0 CLL (chronic lymphocytic leukemia) C91.10 Time Spent (min) 50
[2023-12-17 06:35] LABS: ANTI-Xa, UFH(UnfractionatedHep 0.27 IU/ml (0.3-0.7)
--- NOTE | 2023-12-17 07:11 | Electrocardiogram Report ---
Test Reason : Blood Pressure : / mmHG Vent. Rate : 087 BPM Atrial Rate : 087 BPM P-R Int : 176 ms QRS Dur : 122 ms QT Int : 366 ms P-R-T Axes : 054 -46 133 degrees QTc Int : 440 ms Normal sinus rhythm Left axis deviation Left ventricular hypertrophy with QRS widening and repolarization abnormality vs ischemia Abnormal ECG When compared with ECG of 16-DEC-2023 16:51, (unconfirmed) No significant change was found Confirmed by Ayad Springer ([id number]) on 12/17/2023 7:11:09 AM Referred By: REFERRED SELF Confirmed By:Bala Springer
--- NOTE | 2023-12-17 07:12 | Electrocardiogram Report ---
Test Reason : Blood Pressure : / mmHG Vent. Rate : 103 BPM Atrial Rate : 103 BPM P-R Int : 184 ms QRS Dur : 132 ms QT Int : 360 ms P-R-T Axes : -20 -48 121 degrees QTc Int : 471 ms Sinus tachycardia Left axis deviation Left ventricular hypertrophy with QRS widening and repolarization abnormality vs ischemia Abnormal ECG When compared with ECG of 16-DEC-2023 15:34, ST now depressed in Anterior leads Confirmed by Ayad Springer ([id number]) on 12/17/2023 7:12:24 AM Referred By: REFERRED SELF Confirmed By:Bala Springer
[2023-12-17] MEDS: ASPIRIN 81 MG ECTAB PO SCH (09:24)
--- NOTE | 2023-12-17 11:48 | Cardiology Progress Note ---
Date of Service December 17, 2023 Assessment & Plan (1) NSTEMI (non-ST elevated myocardial infarction): Plan: Severe multivessel coronary artery disease. Currently without chest discomfort. His heart rate and blood pressure are above target. Awaiting transfer to tertiary center for CABG versus high risk PCI. He will remain on heparin drip and aspirin. We will titrate up beta-sera, isosorbide mononitrate, and add hydralazine as needed to maintain an adequate blood pressure. If despite these measures he has recalcitrant chest pain I will need to place an intra-aortic balloon pump with this causes logistical problems with regard to postprocedure transfer and care. Hopefully we can prevent recalcitrant chest pain. Patient will remain on guideline directed medical therapy for secondary prevention including low-dose aspirin, high intensity statin therapy, beta-sera, TOD inhibitor, and antianginal regimen including isosorbide mononitrate. I am also going to speak to a second tertiary center to see if we can expedite the patient's transfer/care. (2) HTN (hypertension): Plan: Blood pressure is elevated. Increasing metoprolol to tartrate to 37.5 mg p.o. twice daily. Continuing lisinopril 20 mg daily. We will also increase his isosorbide mononitrate to 60 mg daily and add hydralazine 10 mg every 6 hours as needed for SBP greater than 140 mmHg. (3) Ischemic cardiomyopathy: Plan: EF is around 25%. This is new. Significant wall motion abnormalities and valvular heart disease. Fortunately, at the moment he does not appear to have any volume overload. Currently on lisinopril and beta-sera. Not requiring any more than 20 mg of Lasix at this time. Eventually I would like to change his regimen to heart failure indicated beta-srea such as metoprolol succinate ER or carvedilol once we know the appropriate beta-sera dose and if his pulmonary disease will allow. Likely change from lisinopril to Entresto but would wait until after cardiac surgery. Also consider spironolactone and an SGLT2 inhibitor. 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 High intensity statin therapy recommended. Target LDL reduction is greater than or equal to 50% of untreated baseline LDL. Titrate as needed and could add Zetia if additional LDL lowering is required. Admission and Anticipated Discharge Date Admission Date: December 15, 2023 Subjective Unfortunately, after the patient returned to his room yesterday evening he developed chest pressure. We were able to eventually resolved that with titration of his medications. His blood pressure was very high at that time and he was anxious about the news regarding need for surgery. They were able to get his chest pain resolved and he states that he has not had any since last night. However, his troponin went back up which is not surprising given the severity of his coronary disease and the elevated blood pressure. We are currently awaiting transfer to tertiary center regarding need for CABG. Patient voices no other complaints or concerns at this time. Review of Systems Review of Systems: Negative except as per HPI Physical Exam Constitutional: WD/WN, vitals as above (Elderly, no acute distress) Neck: No JVD Respiratory: Clear to auscultation bilaterally. No wheezing, rhonchi, or rales. Poor air movement. Cardiovascular: Regular rate and rhythm. S4 gallop. Grade 2/6 systolic murmur. Right radial access is clean dry and intact. Good distal perfusion. Neurologic: Cognition is intact. Hearing mildly diminished. Speech is fluent. No focal deficits. No tremor. Psychiatric: A+Ox3, euthymic affect (Mildly anxious) Results & Data Vital Signs (Past 12 Hours) Vital Signs Temp Pulse Pulse Resp BP Pulse Ox O2 Del Method 12/17/23 08:00 98 H 12/17/23 07:10 36.5 C 91 H 18 160/77 H 93 Room Air 12/17/23 03:49 36.7 C 86 18 126/61 91 Nasal Cannula O2 Flow Rate 12/17/23 08:00 12/17/23 07:10 12/17/23 03:49 1 PG Care Time/CCT Total # of Minutes Spent Total Time Spent with Patient: Total time spent is greater than 50% in coordination of care (as documented) at patient's floor/unit and/or counseling patient: Coding Level of Care Code 14390 SUB INP/OBS CARE 3/50MIN Diagnoses NSTEMI (non-ST elevated myocardial infarction) I21.4 HTN (hypertension) I10 Ischemic cardiomyopathy I25.5 Atherogenic dyslipidemia E78.5
[2023-12-17] MEDS: hydrALAZINE HCL 20 MG/ML VIAL IV PRN (11:55)
[2023-12-17] MEDS: ISOSORBIDE MONO EXTENDED REL 30 MG TABCR PO ONE (12:04)
[2023-12-17 12:16] LABS: Hematocrit (blood only) 33.5 % (42.0-52.0); Hemoglobin 10.4 g/dl (14.0-18.0); Mean Corpuscular Hemoglobin 28.3 pg (25.0-34.0); Mean Corpuscular Volume 91.3 fL (80.0-100.0); Mean Platelet Volume 10.3 fL (9.4-12.4); Platelet Count 244 K/uL (130-400); RDW Coefficient of Variation 13.8 % (11.5-14.5); Red Blood Count 3.67 M/uL (4.70-6.10); White Blood Count 25.19 K/ul (4.8-10.8)
[2023-12-17 12:26] LABS: BUN Creatinine Ratio 28.5 (10-20); C Reactive Protein 7.25 mg/dl (0-0.5); Calcium 9.7 mg/dl (8.6-10.3); Creatinine Clr Calc Pharmacy 33.1 ml/min; Est GFR (African American) 46.2 ml/min; Est GFR (Non-African American) 39.9 ml/min; Potassium 4.5 mmol/L (3.5-5.1)
[2023-12-17 12:34] LABS: ANTI-Xa, UFH(UnfractionatedHep 0.32 IU/ml (0.3-0.7)
--- NOTE | 2023-12-17 13:49 | Discharge Summary ---
Date of Service December 17, 2023 Admission HPI Per Admitting Provider Benja Pool is an 83-year-old male who presents to the ER via EMS with shortness of breath. He was on his way to a when he became acutely short of breath around 12:30pm and called EMS. EMS noted he was cyanotic in the face and nailbeds and ALS was initiated. He arrived to the ED on 4 L/min O2 via nasal cannula. Given 1 mg of Ativan PO en route. He is on room air at home but occasionally uses his partners oxygen. He reports a history of COPD but is on no maintenance inhalers and uses his albuterol x4/day. In the ER he was given an hour long duoneb, Solu-Medrol and placed on BiPAP with complete resolution of his shortness of breath but still requiring 2LPM O2 at rest. When seen the patient reports feeling fine and wondering why he needs to stay in hospital. He feels like he had a panic attack which is fully resolved. He notes having repeated panic attacks on exertion which resolves with rest. He is unsure whether the nebulizer treatment given in the emergency room helped with his shortness of breath although notably feels completely improved now compared to when EMS were called. Per ER provider the patient's chest on auscultation was significantly wheezing prior to duonebs. The patient reports no current chest pain or shortness of breath. He reports maybe having some mild discomfort under both ribs b/l. No palpitations, leg swelling, weight gain, presyncope or syncope. Discharge Exam Elderly white male in no distress. Afebrile. Normotensive. Pulse" tachycardic and regular. Respirations: unlabored. Skin: no ecchymoses or generalized lesions. HEENT: unremarkable. Neck: JVP at the clavicle at 90 degrees, no carotid bruits. Lungs: Moderately decreased breath sounds but no wheezing or crackles. No accessory muscle use. Cardiac: regular rhythm, normal S1-2, no murmur. Abdomen: benign. Extremities: no edema, pulses intact. Neurologic: normal affect and conversation, nonfocal. Discharge Data Allergies Allergy/AdvReac Type Severity Reaction Status Date / Time No Known Allergies Allergy Verified 12/15/23 15:50 Consultations 12/15/23 15:29 ED Decision to Admit Stat 12/15/23 19:24 Consult Cardiology Routine Procedures Performed Operation Date: 12/16/23 14:00 Actual Procedures p Cineradiography w/Routine Exam - Alvaro Jung MD, PhD p Cath, Coronaries ONLY (no LV) - Alvaro Jung MD, PhD Ordered Studies 12/16/23 10:38 CL Cath Imgs for PACS use only Routine Hospital Course (1) NSTEMI (non-ST elevated myocardial infarction): With significant troponin rise and EKG ST depressions in lateral leads main concern is for a type I NSTEMI which may have caused some pulmonary edema noted on chest x-ray. Aspirin 324 mg p.o., IV heparin, switch propranolol to metoprolol tartrate 25 mg p.o. BID, lipid panel in a.m. cardiac cath showed triple vessel disease. Called [facility] for transfer. Patient was accepted. Ordered metoprolol, morphine, nitropaste. Monitor trop. (2) Acute respiratory failure with hypoxia and hypercapnia: Appears resolved after BiPAP, DuoNebs and Solu-Medrol given in the ER consistent with a COPD exacerbation Possibly pulmonary edema contributing therefore we will give Lasix 20 mg IV and monitor I's and O's Procalcitonin increased with concern for multifocal pneumonia on CXR although no neutrophilia \\ (3) COPD exacerbation: Unclear definitive diagnosis given rapid improvement in the emergency room however he is still on 2 L/min O2 and is on room air at home Given wheezing noted by ER provider which resolved with nebulizers this is not consistent with pulm edema wheezing therefore appears reasonable to continue DuoNebs QID and Solu-Medrol 40 mg IV daily Start azithromycin 500 mg p.o. daily for 3 days (4) HTN (hypertension): Rapid resolution following COPD exacerbation treatment. He never required the nitro paste Continue to monitor Continue lisinopril 20mg PO daily with switching propranolol to metoprolol as above (5) BPH (benign prostatic hyperplasia): Noted history of this in EHR but no current medications - monitor for urinary retention (6) CLL (chronic lymphocytic leukemia): Differential of white blood count over lymphocytes suggestive of CLL and no acute infection. Plan VTE prophylaxis - IV heparin Diet - heart healthy, low-sodium Disposition - admit to PCU Discharge Plan Discharge Items Patient Disposition: Transfer Acute Care Hospital Reason For Visit: ACUTE RESPIRATORY FAILURE W HYPOXIA AND HYPERCAPNI Discharge Diagnosis: MD Activity: As commented below Non-emergency contact: Primary Care Provider Call non-emergency contact if: you have any medication questions Follow-up/Referrals: Bhanu Ku, [Primary Care Provider] - Diet: Heart Healthy Addtl Attending Provider Instructions: transfer to [place] [facility] Azithromycin 500 mg starting on 12/15/23 at 19:24 Heparin drip ordered Pending Studies at Discharge: No Stand-Alone Forms: My New [facility] Skilled Items Patient informed of condition?: Yes DNR: No Discharge Level of Care: Other Communicable Disease: No Discharge Prognosis: Stable Lines: None Urinary Catheter: No Medications and DC Order Prescriptions: New azithromycin 250 mg Tablet 500 mg PO Q24H Qty: 2 0RF aspirin 81 mg Tablet,Delayed Release (Dr/Ec) 81 mg PO QAM Qty: 30 0RF atorvastatin 40 mg Tablet 40 mg PO QAM Qty: 0 0RF metoprolol tartrate 25 mg Tablet 37.5 mg PO BID Qty: 0 0RF pantoprazole 40 mg Tablet,Delayed Release (Dr/Ec) 40 mg PO DAILY Qty: 0 0RF isosorbide mononitrate 60 mg Tablet Extended Release 24 Hr 60 mg PO QAM Qty: 0 0RF Continued ferrous sulfate 325 mg (65 mg iron) tablet 325 mg PO DAILY Qty: 90 3RF lisinopril 20 mg tablet 20 mg PO DAILY Qty: 90 3RF albuterol sulfate [Proventil HFA] 90 mcg/actuation HFA aerosol inhaler 2 puffs INH Q6H PRN (Reason: shortness of breath or wheezing) Qty: 18 11RF Discontinued omeprazole 20 mg tablet,delayed release (DR/EC) 20 mg PO DAILY PRN (Reason: HEARTBURN/INDIGESTION) propranolol 20 mg tablet 20 mg PO BID Rx Instructions: TAKE 1 TABLET BY MOUTH TWICE A DAY Discharge Orders: Discharge Order (Routine); Ordered 12/17/23 Ordered By: Donavan Alexander Admission Data Admit Date/Time: 12/15/23 15:50 Attending Provider: Donavan Alexander Admit Provider: Vince Deras Primary Care Provider: Bhanu Ku Other Providers: Vince Deras; Terrence Waters Coding Diagnoses NSTEMI (non-ST elevated myocardial infarction) I21.4 Acute respiratory failure with hypoxia and hypercapnia J96.01; J96.02 COPD exacerbation J44.1 HTN (hypertension) I10 BPH (benign prostatic hyperplasia) N40.0 CLL (chronic lymphocytic leukemia) C91.10
[2023-12-17] MEDS ORDERED: METOPROLOL TARTRATE 25 MG TAB PO SCH (21:00)
[2023-12-18] MEDS ORDERED: ISOSORBIDE MONO EXTENDED REL 60 MG TABCR PO SCH (09:00)
== END 2023-12-17 16:11 | disposition short-term general hospital (02) | DRG 280 ==
LOC: ED 14:07 → SUATTDRO 15:50 → 2S 15:50
PROC: CLB.CCO (2023-12-16 14:00)